=== PATIENT | male | born 1990 | race Two or more races ===

== ENCOUNTER 2019-03-16 21:36 | Emergency (ER) | payer MEDICAID ==
[~2019-03-16] VITALS: Ht 157.5 cm; Wt 56.7 kg
[2019-03-16 21:46] VITALS: BP_SYST 119
--- NOTE | 2019-03-16 21:55 | NUR ---
Vicki dewitt in ED - 03/16/19 at 2240 by [email or web address] patient left without being seen at 2155
--- NOTE | 2019-03-16 21:55 | NUR ---
Pt states he wants MRI of his back , pt notified there is no MRI available at this time. pt ambulatory.VSS.
--- NOTE | 2019-03-16 21:55 | NUR ---
Pt left without being seen.
== END 2019-03-16 21:55 | disposition left against medical advice (07) ==
LOC: SED 21:36
DX: M54.9 Dorsalgia, unspecified (principal); Z53.21 Procedure and treatment not carried out due to patient leaving prior to being seen by health care provider